=== PATIENT | male | born 1975 | race Hispanic/Latino ===

== ENCOUNTER → 2016-08-19 | Outpatient (CLI) | payer BC ==
[2016-08-19 08:37] LABS: ASPARTATE AMINO TRANSFERASE 52 IU/L (21-57); BILIRUBIN,TOTAL 1.3 mg/dL (0.3-1.2); BLOOD UREA NITROGEN 12 mg/dL (7-22); CHLORIDE 102 meq/L (98-112); CREATININE 0.6 mg/dL (0.70-1.50); CREATININE, URINE 76.4 MG/DL (15-500); EST GLOMERULAR FILTRATION > 60 (>60 ml/min/1.73m(2)); GLUCOSE 142 mg/dL (78-110); HDL CHOLESTEROL 41 mg/dL (40-150); HEMOGLOBIN A1C 7.77 % (4.2-6.0); MEAN BLOOD GLUCOSE (CALC) 172.741 mg/dL; POTASSIUM 3.8 meq/L (3.8-5.2); SODIUM 138 meq/L (135-145); TRIGLYCERIDES 175 mg/dL (44-200)
== END ==
LOC: LAB 08:16
PROVIDERS: ATTEND Nurse Practitioner Family
DX: E11.9 Type 2 diabetes mellitus without complications (principal); Z79.4 Long term (current) use of insulin; E78.5 Hyperlipidemia, unspecified; I10 Essential (primary) hypertension; F17.220 Nicotine dependence, chewing tobacco, uncomplicated
CPT/HCPCS: 36415; 80048; 82043; 82247; 82465; 82550; 82977; 83036; 83718; 84075; 84450; 84460; 84478

== ENCOUNTER → 2016-11-17 | Outpatient (CLI) | payer BC ==
[2016-11-17 09:12] LABS: HEMOGLOBIN A1C 7.02 % (4.2-6.0)
[2016-11-17 09:26] LABS: BLOOD UREA NITROGEN 20 mg/dL (7-22); BUN/CREATININE RATIO 28.57 (6-20); CALCIUM 8.9 mg/dL (8.7-10.7); CHOL/HDL RATIO 3.79 RATIO (0-4.0); EST GLOMERULAR FILTRATION > 60 (>60 ml/min/1.73m(2)); GAMMA GLUTAMYL TRANSPEPTIDASE 27 IU/L (8-78); HDL CHOLESTEROL 43 mg/dL (40-150); SERUM CHOLESTEROL 163 mg/dL (120-200)
[2016-11-17 09:30] LABS: CREATININE, URINE 99.5 MG/DL (15-500)
== END ==
LOC: LAB 08:22
PROVIDERS: ATTEND Nurse Practitioner Family
DX: E11.9 Type 2 diabetes mellitus without complications (principal); Z79.4 Long term (current) use of insulin; E78.5 Hyperlipidemia, unspecified; I10 Essential (primary) hypertension
CPT/HCPCS: 80048; 82043; 82247; 82465; 82550; 82977; 83036; 83718; 84075; 84450; 84460; 84478

== ENCOUNTER → 2016-12-28 | Outpatient (CLI) | payer BC ==
--- NOTE | 2016-12-30 08:48 | DI ---
LEFT FOOT, 12/28/2016 1:11 PM: Clinical History: Left heel pain. Previous Exam: None at this facility. 3 views are submitted. There is no acute soft tissue, osseous, or joint abnormality. Small bony spurs are present at the attachment of the Achilles tendon and plantar fascia to the calcaneus. 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 The patient's age is listed as 39 two-view is but there are calcifications in the dorsalis pedis and posterior tibial arteries in a pattern typically associated with diabetes. Readin. There are bone spurs at the attachment of the Achilles tendon and plantar fascia to the calcaneus and a Stieda's process. 2. Vascular calcifications are noted in this 41-year-old patient raising the possibility the patient has diabetes mellitus.
== END ==
LOC: MOB RAD 14:11
PROVIDERS: ATTEND Podiatrist Foot & Ankle Surgery
DX: M79.672 Pain in left foot (principal); M19.072 Primary osteoarthritis, left ankle and foot; M76.62 Achilles tendinitis, left leg; M77.32 Calcaneal spur, left foot; M72.2 Plantar fascial fibromatosis; F17.200 Nicotine dependence, unspecified, uncomplicated
CPT/HCPCS: 73630